=== PATIENT | male | born 1960 | race Caucasian/White ===

== ENCOUNTER 2020-05-20 13:47 | Outpatient (RCR) | payer OTHER | END 2020-06-17 | disposition home or self-care (01) | LOC: WCC 13:47 | DX: T24.232A Burn of second degree of left lower leg, initial encounter (principal); T24.231A Burn of second degree of right lower leg, initial encounter; T24.331A Burn of third degree of right lower leg, initial encounter; T24.332A Burn of third degree of left lower leg, initial encounter; T21.25XA Burn of second degree of buttock, initial encounter; L97.822 Non-pressure chronic ulcer of other part of left lower leg with fat layer exposed; L97.812 Non-pressure chronic ulcer of other part of right lower leg with fat layer exposed; L98.492 Non-pressure chronic ulcer of skin of other sites with fat layer exposed | CPT/HCPCS: 11042; 15271; C5271; G0463; Q4102; Q4103 ==